=== PATIENT | male | born 2000 | race Caucasian/White ===

== ENCOUNTER 2020-09-20 08:07 | Emergency (ER) | payer MEDICAID, SELFPAY ==
--- NOTE | ~2020-09-20 | CT_ITS ---
EXAMINATION: CT ABDOMEN AND PELVIS WITH CONTRAST CLINICAL INFORMATION: Right lower quadrant abdominal pain. COMPARISON: CT of the abdomen and pelvis done on 11/09/2018. TECHNIQUE: Multidetector volumetric images were obtained from the superior aspect of the liver through the pubic symphysis following administration 85 mL of Omnipaque 350 intravenous contrast. Sagittal and coronal reformatted images were obtained on the technologist's workstation. Oral contrast: No This CT examination was performed using dose optimization techniques as appropriate, variously including the following: *Automated exposure control *Adjustment of mA and/or kV according to patient size (this includes techniques or standardized protocols for targeted exams where dose is matched to indication/reason for exam; i.e. extremities or head) *Use of iterative reconstruction technique DLP: 470 mGy-cm FINDINGS: LUNG BASES: The visualized lung bases are unremarkable. LIVER, GALLBLADDER, AND BILIARY TREE: The liver is normal in size, shape, and attenuation. No focal hepatic lesion or biliary ductal dilatation is present. The gallbladder is unremarkable with no evidence of radiopaque gallstones, gallbladder wall thickening, or obvious pericholecystic inflammatory changes. PANCREAS: Unremarkable. SPLEEN: Unremarkable. ADRENAL GLANDS: Unremarkable. KIDNEYS AND URETERS: The kidneys are normal in size, shape, and attenuation. No hydronephrosis, hydroureter, or calculi seen. No perinephric stranding. BLADDER: Circumferential diffuse thickening is present, may represent changes secondary to superimposed infection, outlet obstruction, suboptimal distention, or combination thereof. GASTROINTESTINAL TRACT: The small and large bowel are unremarkable. The appendix measures 6 mm at its maximum diameter. Appendicoliths are present. The tip of the appendix shows subtle periappendiceal stranding. The findings may represent early subtle changes of appendicitis however, may also represent normal findings. Clinical correlation is recommended. ABDOMINAL WALL: No significant hernia is appreciated. LYMPH NODES: Normal. VASCULAR: Unremarkable. PELVIC VISCERA: Unremarkable. OSSEOUS STRUCTURES: Unremarkable. CT/CT abdomen pelvis w con IMPRESSION: 1. Evidence of appendicolith and a normal caliber appendix. The tip of the appendix shows subtle periappendiceal stranding. The findings may represent normal finding or early subtle changes of appendicitis. Clinical and lab correlation is recommended. 2. Circumferential diffuse thickening of the urine bladder, nonspecific, may represent changes secondary to superimposed infection, altered obstruction, suboptimal distention or combination thereof. This critical result was discussed with Dr. Leung at 10:43 AM on 09/20/2020 and it was ascertained that the content and urgency of the report was understood at the time of direct communication.
[2020-09-20 08:26] VITALS: BP 113/70; PULSE 67; RESP 16; TEMP 36.8; O2SAT 98; BMI 25.1
--- NOTE | 2020-09-20 08:46 | ED.ABDPAIN ---
HPI - Abdominal Pain General Chief Complaint: Abdominal Pain Stated Complaint: Abd pain, blood in urine Time Seen by Provider: 09/20/20 08:36 Source: patient Mode of arrival: ambulatory History of Present Illness HPI narrative: THIS IS A 19 YEARS OLD MALE PRESENTED TO THE EMERGENCY ROOM WITH A CHIEF COMPLAINT OF RIGHT LOWER QUADRANT ABDOMINAL PAIN X4 DAYS MD elicited complaint: abdominal pain Pertinent past history: none Onset (ago): day(s) (4) Pain Consistency: constant Location: RLQ Severity: mild Quality: cramping Radiation: none Migration to: no migration Exacerbating factors: nothing Related Data Previous Rx's Medication Instructions Recorded levofloxacin 500 mg PO Q24H #7 tab 09/20/20 Allergies Allergy/AdvReac Type Severity Reaction Status Date / Time peanut [PEANUT] Allergy Unknown ANAPHYLAXIS Unverified 12/05/19 16:55 Review of Systems Review of Systems Yes all other systems are reviewed and are negative Cardiovascular: Reports no additional cardiovascular complaints Gastrointestinal: Reports no additional gastrointestinal complaints Reports system reviewed and no additional complaints, except as documented Physical Exam Vital Signs: Vital Signs: Last Vital Signs Temp 98.8 F 09/20/20 11:24 Pulse 50 09/20/20 11:24 Resp 18 09/20/20 11:24 BP 116/68 09/20/20 11:24 Pulse Ox 99 09/20/20 11:24 Body Mass Index 25.1 Const: General: cooperative, healthy appearing, comfortable, no acute distress, well developed, alert and awake Orientation/consciousness: oriented to person, oriented to place, oriented to time and patient oriented x3 HENMT: Head: Yes normal to inspection Ears: hearing grossly normal bilaterally General nose exam: Normal external nose present Face and sinus: Yes normal facial exam Eyes: General: appearance normal, both eyes and all related structures Sclerae: sclerae normal Neck: Neck: Yes normal visual inspection, Yes full ROM and Yes no lymphadenopathy Chest: Chest palpation & inspection: normal inspection of the chest and normal palpation of entire chest wall Resp: Auscultation: clear to auscultation bilaterally Cardio: Jugular venous distension: no JVD Palpation: normal PMI Rate: regular rate Rhythm: regular rhythm GI: Palpation (GI): Soft to palpation, not firm and Tenderness to palpation present (GI) in the RLQ Skin: General skin exam: no rashes or lesions noted, elasticity normal and turgor normal Neuro: General: oriented to person, oriented to place, oriented to time, patient oriented x3 and gait normal Course Course Course Narrative: the result of the CT scan of the abdomen and pelvis was reviewed he has an appendicolith but the appendix is normal in size. I consulted the surgeon on-call Dr. Goel he does not think the patient has an acute appendicitis because he is afebrile, no nausea ,he has a normal white count the symptoms have been present for few days also patient has hematuria and dysuria. He recommend to treat the patient with p.o. antibiotic for possible UTI, he will see the patient in the office for follow-up. Dr. Goel explained this to the patient who is very comfortable with the plan. He will be discharged on p.o. antibiotic and abdominal pain instruction MDM - Abdominal Pain Lab Data Result diagrams: 09/20/20 08:56 09/20/20 08:56 Labs: Lab Results 09/20/20 09/20/20 09/20/20 Range/Units 08:56 08:56 09:11 WBC 5.1 (4.8-10.8) X10*3/uL RBC 4.97 (4.60-5.80) X10*6/uL Hgb 15.0 (14.0-18.0) g/dl Hct 43.3 (42-52) % MCV 87.1 (80-98) fL MCH 30.2 (27.0-33.0) pg MCHC 34.6 (31.0-36.0) g/dl RDW 12.6 (11.0-16.0) % Plt Count 165 (160-400) X10*3/uL MPV 10.0 (9.4-12.4) fL Immature Gran % (Auto) 0.2 (0.0-0.4) % Neut % (Auto) 67.9 (45-73) % Lymph % (Auto) 21.0 (20-40) % [place] % (Auto) 7.7 (2-11) % Eos % (Auto) 2.6 (0-4) % Baso % (Auto) 0.6 (0-2) % Lymph # (Auto) 1.1 L (1.2-4.9) X10*3/uL [place] # (Auto) 0.4 (0.1-1.2) X10*3/uL Eos # (Auto) 0.1 (0.0-0.4) X10*3/uL Baso # (Auto) 0.0 (0.0-0.2) X10*3/uL Abs Immat Gran (auto) 0.01 (0.00-0.03) X10*3/uL Absolute Neuts (auto) 3.4 (2.0-8.3) X10*3/uL Absolute Nucleated RBC 0.000 (0.0-0.012) X10*3/uL Nucleated RBC % (auto) 0.0 (0.0-0.2) /100WBC Sodium 139 (135-145) mmol/L Potassium 4.0 (3.3-5.1) mmol/L Chloride 106 (96-108) mmol/L Carbon Dioxide 26 (22-29) mmol/L Anion Gap 11 L (12-20) BUN 9 (9-16) mg/dL Creatinine 0.80 (0.5-1.4) mg/dL Estim Creat Clear Calc 148.5 Estimated GFR > 60 Random Glucose 101 (60-115) mg/dL Calcium 9.4 (8.4-10.2) mg/dL Total Bilirubin 0.8 (0.0-1.0) mg/dL AST 15 (5-37) U/L ALT 8 (0-40) U/L Alkaline Phosphatase 56 (39-117) U/L Total Protein 6.8 (6.5-8.0) g/dL Albumin 4.2 (3.5-5.0) g/dL Lipase 19 (8-78) U/L Urine Color YELLOW Urine Appearance HAZY Urine pH 6.5 (5.0-8.0) Ur Specific [place] 1.020 (1.005-1.025) Urine Protein 1+ H (NEG-TRACE) MG/DL Urine Glucose (UA) NEG (NEG) MG/DL Urine Ketones NEG (NEG) MG/DL Urine Blood 2+ H (NEG) Urine Nitrite NEG (NEG) Ur Leukocyte Esterase 2+ H (NEG) Urine RBC 5-9 H (0) /HPF Urine WBC 15-29 H (0-4) /HPF Ur Squamous Epith Cells NONE /LPF Urine Bacteria NONE /LPF Urine Mucus 1+ /LPF Urine Opiates Screen (Not Detect) Ur Barbiturates Screen (Not Detect) Ur Phencyclidine Scrn (Not Detect) Ur Amphetamines Screen (Not Detect) U Benzodiazepines Scrn (Not Detect) Urine Cocaine Screen (Not Detect) U Marijuana (THC) Screen (Not Detect) 09/20/20 Range/Units 09:11 WBC (4.8-10.8) X10*3/uL RBC (4.60-5.80) X10*6/uL Hgb (14.0-18.0) g/dl Hct (42-52) % MCV (80-98) fL MCH (27.0-33.0) pg MCHC (31.0-36.0) g/dl RDW (11.0-16.0) % Plt Count (160-400) X10*3/uL MPV (9.4-12.4) fL Immature Gran % (Auto) (0.0-0.4) % Neut % (Auto) (45-73) % Lymph % (Auto) (20-40) % [place] % (Auto) (2-11) % Eos % (Auto) (0-4) % Baso % (Auto) (0-2) % Lymph # (Auto) (1.2-4.9) X10*3/uL [place] # (Auto) (0.1-1.2) X10*3/uL Eos # (Auto) (0.0-0.4) X10*3/uL Baso # (Auto) (0.0-0.2) X10*3/uL Abs Immat Gran (auto) (0.00-0.03) X10*3/uL Absolute Neuts (auto) (2.0-8.3) X10*3/uL Absolute Nucleated RBC (0.0-0.012) X10*3/uL Nucleated RBC % (auto) (0.0-0.2) /100WBC Sodium (135-145) mmol/L Potassium (3.3-5.1) mmol/L Chloride (96-108) mmol/L Carbon Dioxide (22-29) mmol/L Anion Gap (12-20) BUN (9-16) mg/dL Creatinine (0.5-1.4) mg/dL Estim Creat Clear Calc Estimated GFR Random Glucose (60-115) mg/dL Calcium (8.4-10.2) mg/dL Total Bilirubin (0.0-1.0) mg/dL AST (5-37) U/L ALT (0-40) U/L Alkaline Phosphatase (39-117) U/L Total Protein (6.5-8.0) g/dL Albumin (3.5-5.0) g/dL Lipase (8-78) U/L Urine Color Urine Appearance Urine pH (5.0-8.0) Ur Specific [place] (1.005-1.025) Urine Protein (NEG-TRACE) MG/DL Urine Glucose (UA) (NEG) MG/DL Urine Ketones (NEG) MG/DL Urine Blood (NEG) Urine Nitrite (NEG) Ur Leukocyte Esterase (NEG) Urine RBC (0) /HPF Urine WBC (0-4) /HPF Ur Squamous Epith Cells /LPF Urine Bacteria /LPF Urine Mucus /LPF Urine Opiates Screen Not Detected (Not Detect) Ur Barbiturates Screen Not Detected (Not Detect) Ur Phencyclidine Scrn Not Detected (Not Detect) Ur Amphetamines Screen Not Detected (Not Detect) U Benzodiazepines Scrn Not Detected (Not Detect) Urine Cocaine Screen Not Detected (Not Detect) U Marijuana (THC) Screen POSITIVE H (Not Detect) Imaging Data CT scan - abdomen: Radiologist's impression: ABDOMINAL WALL: No significant hernia is appreciated. LYMPH NODES: Normal. VASCULAR: Unremarkable. PELVIC VISCERA: Unremarkable. OSSEOUS STRUCTURES: Unremarkable. CT/CT abdomen pelvis w con IMPRESSION: 1. Evidence of appendicolith and a normal caliber appendix. The tip of the appendix shows subtle periappendiceal stranding. The findings may represent normal finding or early subtle changes of appendicitis. Clinical and lab correlation is recommended. 2. Circumferential diffuse thickening of the urine bladder, nonspecific, may represent changes secondary to superimposed infection, altered obstruction, suboptimal distention or combination thereof. This critical result was discussed with Dr. Leung at 10:43 AM on 09/20/2020 and it was ascertained that the content and urgency of the report was understood at the time of direct communication. Discharge Plan Discharge Clinical Impression: Abdominal pain, Acute UTI Patient Disposition: Home, Self-Care Instructions: Urinary Tract Infection in Men (ED), Abdominal Pain (ED) Additional Instructions: follow-up with Dr. Goel as we discussed, take the antibiotic as directed return to the emergency room review of vomiting a few of a fever a few no nausea increasing pain Prescriptions: New levofloxacin 500 mg tablet 500 mg PO Q24H Qty: 7 RF: 0 Referrals: Daljit Goel MD [Physician] - 2 days Interventions: ED Discharge Assessment Last Done: 09/20/20 12:05 Discharge Date/Time: 09/20/20 12:06 PMFSH Past Medical History Medical History No known health problems Suprapubic pain Social History Social History Alcohol intake: never Patient Tobacco Use Status: Never used Tobacco Use of substances other than those prescribed or required for medical reasons: Yes Substance Use Type: Marijuana Substance Use Frequency: Occasionally Advance Directives: Yes Advance Directives Information Provided: No Advance Directives on File: No
[2020-09-20 09:00] LABS: MANUAL DIFF FLAG NO
[2020-09-20 09:03] LABS: Basophils Percent Auto 0.6 % (0-2); Eosinophils Absolute Auto 0.1 X10*3/uL (0.0-0.4); Eosinophils Percent Auto 2.6 % (0-4); Hematocrit 43.3 % (42-52); Imm Gran Abs Auto 0.01 X10*3/uL (0.00-0.03); Imm Gran Pct Auto 0.2 % (0.0-0.4); Lymphocytes Absolute Auto 1.1 X10*3/uL (1.2-4.9); Mean Corpuscular HGB Conc 34.6 g/dl (31.0-36.0); Mean Corpuscular Hemoglobin 30.2 pg (27.0-33.0); Mean Corpuscular Volume 87.1 fL (80-98); Monocytes Absolute Auto 0.4 X10*3/uL (0.1-1.2); Monocytes Percent Auto 7.7 % (2-11); Neutrophils Absolute Auto 3.4 X10*3/uL (2.0-8.3); Neutrophils Percent Auto 67.9 % (45-73); Platelet Count 165 X10*3/uL (160-400); Red Blood Count 4.97 X10*6/uL (4.60-5.80); Red Cell Distribution Width 12.6 % (11.0-16.0); White Blood Count 5.1 X10*3/uL (4.8-10.8)
--- NOTE | 2020-09-20 09:08 | PC.NURSE ---
iv established, blood labs obtained and sent. pt ambulating to and from bathroom w smooth steady gait.
[2020-09-20 09:18] LABS: Glucose Urine UA NEG (NEG); Leukocyte Esterase Urine 2+ (NEG); Nitrite Urine NEG (NEG); PH 6.5 (5.0-8.0); UACC Culture Trigger YES; Urine Blood 2+ (NEG); Urine Ketones NEG (NEG); Urine Protein 1+ MG/DL (NEG-TRACE)
[2020-09-20 09:28] LABS: Albumin Level 4.2 g/dL (3.5-5.0); Alkaline Phosphatase 56 U/L (39-117); Anion Gap 11 (12-20); Aspartate Amino Transferase 15 U/L (5-37); Bilirubin Total 0.8 mg/dL (0.0-1.0); Blood Urea Nitrogen 9 mg/dL (9-16); Calcium 9.4 mg/dL (8.4-10.2); Carbon Dioxide 26 mmol/L (22-29); Chloride 106 mmol/L (96-108); Creatinine Clr Calc Pharmacy 148.5; Estimated Glomerular Filt Rate > 60; Glucose Random 101 mg/dL (60-115); Lipase 19 U/L (8-78); Sodium 139 mmol/L (135-145); Total Protein 6.8 g/dL (6.5-8.0)
[2020-09-20 09:36] LABS: Appearance Urine HAZY; Color Urine YELLOW; UACC CULT YES
[2020-09-20 09:38] LABS: Alanine Aminotransferase 8 U/L (0-40)
[2020-09-20 09:40] LABS: Mucus Urine 1+ /LPF
[2020-09-20 09:41] LABS: Amphetamine Screen Urine Not Detected (Not Detect); Barbiturates, Urine Not Detected (Not Detect); Benzodiazepines Screen Urine Not Detected (Not Detect); Cannabinoid Screen Urine POSITIVE (Not Detect); Cocaine Screen Urine Not Detected (Not Detect); Opiate Screen Urine Not Detected (Not Detect); Phencyclidine Screen Urine Not Detected (Not Detect)
[2020-09-20] MEDS: iohexoL 350 MG/ML 100 ML INFUS..BTL IV (09:54)
[2020-09-20 11:24] VITALS: BP 116/68; PULSE 50; RESP 18; TEMP 37.1; O2SAT 99
--- NOTE | 2020-09-20 11:26 | PM.HPGS ---
History of Present Illness History of Present Illness Date of Service: 09/20/20 Chief complaint: Abd pain, blood in urine Narrative: John Alfaro is a 19 year old male who came to the ED this morning because of what he describes as pain on the pubic area. He says this has been going on for over 1 week now. He describes seeing blood with urination for the oast three days. He says he has severe burning on the pubic area as well with urination. He says he had felt nauseous because of this burning pain. He denies any fever or chills. He denies nausea. He says the pain has not really changed much the past week. He does state that the pain radiates a little more laterally to both the left and the right side near the suprapubic area. Review of Systems Constitutional: Constitutional: Denies chills and Denies fever(s) Cardiovascular: Cardiovascular: Denies chest pain, Denies dyspnea and Denies dyspnea on exertion Respiratory: Respiratory: Denies cough, Denies dyspnea and Denies dyspnea on exertion Gastrointestinal: Gastrointestinal: Denies hematochezia and Denies change in bowel habits Genitourinary: Genitourinary: Reports hematuria, Reports difficulty urinating and Reports dysuria Musculoskeletal: Musculoskeletal: Denies back pain and Denies limited range of motion Neurologic: Denies focal weakness and Denies convulsions Psychiatric: Psychiatric: Denies depression and Denies mood swings PMFSH Past Medical History Medical History (Updated 09/20/20 @ 11:30 by Daljit Goel MD) No known health problems Suprapubic pain Social History Social History Alcohol intake: never Patient Tobacco Use Status: Never used Tobacco Use of substances other than those prescribed or required for medical reasons: Yes Substance Use Type: Marijuana Substance Use Frequency: Occasionally Advance Directives: Yes Advance Directives Information Provided: No Advance Directives on File: No Meds Allergies Allergy/AdvReac Type Severity Reaction Status Date / Time peanut [PEANUT] Allergy Unknown ANAPHYLAXIS Unverified 12/05/19 16:55 Physical Exam Vital Signs: Vital Signs: Last Vital Signs Temp 98.8 F 09/20/20 11:24 Pulse 50 09/20/20 11:24 Resp 18 09/20/20 11:24 BP 116/68 09/20/20 11:24 Pulse Ox 99 09/20/20 11:24 Body Mass Index 25.1 Const: General: comfortable and no acute distress Orientation/consciousness: patient oriented x3 Neck: Neck: Yes no lymphadenopathy Resp: Auscultation: clear to auscultation bilaterally Cardio: Rhythm: regular rhythm GI: Palpation (GI): Soft to palpation, nontender and no guarding Neuro: General: patient oriented x3 Results Results Labs: Short CBC 09/20/20 Range/Units 08:56 WBC 5.1 (4.8-10.8) X10*3/uL Hgb 15.0 (14.0-18.0) g/dl Hct 43.3 (42-52) % Plt Count 165 (160-400) X10*3/uL BMP 09/20/20 08:56 Sodium 139 Potassium 4.0 Chloride 106 Carbon Dioxide 26 BUN 9 Creatinine 0.80 Calcium 9.4 Liver Function 09/20/20 Range/Units 08:56 Total Bilirubin 0.8 (0.0-1.0) mg/dL AST 15 (5-37) U/L ALT 8 (0-40) U/L Alkaline Phosphatase 56 (39-117) U/L Albumin 4.2 (3.5-5.0) g/dL Urine 09/20/20 Range/Units 09:11 Urine Color YELLOW Urine Appearance HAZY Urine pH 6.5 (5.0-8.0) Ur Specific [place] 1.020 (1.005-1.025) Urine Protein 1+ H (NEG-TRACE) MG/DL Urine Glucose (UA) NEG (NEG) MG/DL Laboratory Results WBC 5.1 X10*3/uL (4.8-10.8) 09/20/20 08:56 RBC 4.97 X10*6/uL (4.60-5.80) 09/20/20 08:56 Hgb 15.0 g/dl (14.0-18.0) 09/20/20 08:56 Hct 43.3 % (42-52) 09/20/20 08:56 MCV 87.1 fL (80-98) 09/20/20 08:56 MCH 30.2 pg (27.0-33.0) 09/20/20 08:56 MCHC 34.6 g/dl (31.0-36.0) 09/20/20 08:56 RDW 12.6 % (11.0-16.0) 09/20/20 08:56 Plt Count 165 X10*3/uL (160-400) 09/20/20 08:56 MPV 10.0 fL (9.4-12.4) 09/20/20 08:56 Immature Gran % (Auto) 0.2 % (0.0-0.4) 09/20/20 08:56 Neut % (Auto) 67.9 % (45-73) 09/20/20 08:56 Lymph % (Auto) 21.0 % (20-40) 09/20/20 08:56 [place] % (Auto) 7.7 % (2-11) 09/20/20 08:56 Eos % (Auto) 2.6 % (0-4) 09/20/20 08:56 Baso % (Auto) 0.6 % (0-2) 09/20/20 08:56 Lymph # (Auto) 1.1 X10*3/uL (1.2-4.9) L 09/20/20 08:56 [place] # (Auto) 0.4 X10*3/uL (0.1-1.2) 09/20/20 08:56 Eos # (Auto) 0.1 X10*3/uL (0.0-0.4) 09/20/20 08:56 Baso # (Auto) 0.0 X10*3/uL (0.0-0.2) 09/20/20 08:56 Abs Immat Gran (auto) 0.01 X10*3/uL (0.00-0.03) 09/20/20 08:56 Absolute Neuts (auto) 3.4 X10*3/uL (2.0-8.3) 09/20/20 08:56 Absolute Nucleated RBC 0.000 X10*3/uL (0.0-0.012) 09/20/20 08:56 Nucleated RBC % (auto) 0.0 /100WBC (0.0-0.2) 09/20/20 08:56 Sodium 139 mmol/L (135-145) 09/20/20 08:56 Potassium 4.0 mmol/L (3.3-5.1) 09/20/20 08:56 Chloride 106 mmol/L (96-108) 09/20/20 08:56 Carbon Dioxide 26 mmol/L (22-29) 09/20/20 08:56 Anion Gap 11 (12-20) L 09/20/20 08:56 BUN 9 mg/dL (9-16) 09/20/20 08:56 Creatinine 0.80 mg/dL (0.5-1.4) 09/20/20 08:56 Estim Creat Clear Calc 148.5 09/20/20 08:56 Estimated GFR > 60 09/20/20 08:56 Random Glucose 101 mg/dL (60-115) 09/20/20 08:56 Calcium 9.4 mg/dL (8.4-10.2) 09/20/20 08:56 Total Bilirubin 0.8 mg/dL (0.0-1.0) 09/20/20 08:56 AST 15 U/L (5-37) 09/20/20 08:56 ALT 8 U/L (0-40) 09/20/20 08:56 Alkaline Phosphatase 56 U/L (39-117) 09/20/20 08:56 Total Protein 6.8 g/dL (6.5-8.0) 09/20/20 08:56 Albumin 4.2 g/dL (3.5-5.0) 09/20/20 08:56 Lipase 19 U/L (8-78) 09/20/20 08:56 Urine Color YELLOW 09/20/20 09:11 Urine Appearance HAZY 09/20/20 09:11 Urine pH 6.5 (5.0-8.0) 09/20/20 09:11 Ur Specific [place] 1.020 (1.005-1.025) 09/20/20 09:11 Urine Protein 1+ MG/DL (NEG-TRACE) H 09/20/20 09:11 Urine Glucose (UA) NEG MG/DL (NEG) 09/20/20 09:11 Urine Ketones NEG MG/DL (NEG) 09/20/20 09:11 Urine Blood 2+ (NEG) H 09/20/20 09:11 Urine Nitrite NEG (NEG) 09/20/20 09:11 Ur Leukocyte Esterase 2+ (NEG) H 09/20/20 09:11 Urine RBC 5-9 /HPF (0) H 09/20/20 09:11 Urine WBC 15-29 /HPF (0-4) H 09/20/20 09:11 Ur Squamous Epith Cells NONE /LPF 09/20/20 09:11 Urine Bacteria NONE /LPF 09/20/20 09:11 Urine Mucus 1+ /LPF 09/20/20 09:11 Urine Opiates Screen Not Detected (Not Detect) 09/20/20 09:11 Ur Barbiturates Screen Not Detected (Not Detect) 09/20/20 09:11 Ur Phencyclidine Scrn Not Detected (Not Detect) 09/20/20 09:11 Ur Amphetamines Screen Not Detected (Not Detect) 09/20/20 09:11 U Benzodiazepines Scrn Not Detected (Not Detect) 09/20/20 09:11 Urine Cocaine Screen Not Detected (Not Detect) 09/20/20 09:11 U Marijuana (THC) Screen POSITIVE (Not Detect) H 09/20/20 09:11 Impressions Abdomen/Pelvis CT 09/20/20 08:45 IMPRESSION: 1. Evidence of appendicolith and a normal caliber appendix. The tip of the appendix shows subtle periappendiceal stranding. The findings may represent normal finding or early subtle changes of appendicitis. Clinical and lab correlation is recommended. 2. Circumferential diffuse thickening of the urine bladder, nonspecific, may represent changes secondary to superimposed infection, altered obstruction, suboptimal distention or combination thereof. This critical result was discussed with Dr. Leung at 10:43 AM on 09/20/2020 and it was ascertained that the content and urgency of the report was understood at the time of direct communication. Assessment and Plan (1) Suprapubic pain: Status: Acute His main complaint is severe burning with urination with pain on the suprapubic area mostly. Physical exam shows a mildly tender abdomen mostly on the suprapubic area and less on both the left and right side. He does not have leukocytosis. He has had this pain for over 1 week. Overall clinical picture is not suggestive of acute appendicitis. I have reviewed his CT scan images as well and the findings on the appendix are underwhelming. He does have appendicoliths so I explained to him that this may cause acute appendicitis in the future, but for now, clinical judgment suggests a urinary tract pathology like UTI and cysititis. He has RBCs in the urine as well as large numbers of WBCs and is positive for leukocyte esterase. I have discussed this with the ED staff and I agree with PO abx at this time. I did have a long discussion with the pt and explained to him that if he feels he has not improved with a reasonable duration of abx treatment, he should come back to be reevaluated.
[2020-09-20] MEDS: cefTRIAXone sodium 1 GM in 0.9 % Sodium Chloride 50 ML IV (11:32)
--- NOTE | 2020-09-20 11:47 | PM.CNGS ---
History of Present Illness Consult details Consult date: 09/20/20 Narrative: John Alfaro is a 19 year old male who came to the ED this morning because of what he describes as pain on the pubic area. He says this has been going on for over 1 week now. He describes seeing blood with urination for the oast three days. He says he has severe burning on the pubic area as well with urination. He says he had felt nauseous because of this burning pain. He denies any fever or chills. He denies nausea. He says the pain has not really changed much the past week. He does state that the pain radiates a little more laterally to both the left and the right side near the suprapubic area. Review of Systems Constitutional: Constitutional: Denies chills and Denies fever(s) Cardiovascular: Cardiovascular: Denies chest pain, Denies dyspnea and Denies dyspnea on exertion Respiratory: Respiratory: Denies cough, Denies dyspnea and Denies dyspnea on exertion Gastrointestinal: Gastrointestinal: Denies hematochezia and Denies change in bowel habits Genitourinary: Genitourinary: Reports hematuria, Reports difficulty urinating and Reports dysuria Musculoskeletal: Musculoskeletal: Denies back pain and Denies limited range of motion Neurologic: Denies focal weakness and Denies convulsions Psychiatric: Psychiatric: Denies depression and Denies mood swings PMFSH Past Medical History Medical History No known health problems Suprapubic pain Social History Social History Alcohol intake: never Patient Tobacco Use Status: Never used Tobacco Use of substances other than those prescribed or required for medical reasons: Yes Substance Use Type: Marijuana Substance Use Frequency: Occasionally Advance Directives: Yes Advance Directives Information Provided: No Advance Directives on File: No Meds Allergies Allergy/AdvReac Type Severity Reaction Status Date / Time peanut [PEANUT] Allergy Unknown ANAPHYLAXIS Unverified 12/05/19 16:55 Active Medications: Current Medications Generic Name Dose Route Start Last Admin Trade Name Freq PRN Reason Stop Dose Admin Ceftriaxone Sodium 1 gm/ 50 mls @ 100 mls/hr 09/20/20 11:25 09/20/20 11:32 Sodium Chloride IV 09/20/20 11:54 100 mls/hr ONCE ONE Administration Physical Exam Vital Signs: Vital Signs: Last Vital Signs Temp 98.8 F 09/20/20 11:24 Pulse 50 09/20/20 11:24 Resp 18 09/20/20 11:24 BP 116/68 09/20/20 11:24 Pulse Ox 99 09/20/20 11:24 Body Mass Index 25.1 Const: General: comfortable and no acute distress Orientation/consciousness: patient oriented x3 Neck: Neck: Yes no lymphadenopathy Resp: Auscultation: clear to auscultation bilaterally Cardio: Rhythm: regular rhythm GI: Other: mild tenderness on the suprapubic area, less on both left and right lateral to this, no guarding or rebound, no Rovsing's sign Palpation (GI): Soft to palpation and no guarding Neuro: General: patient oriented x3 Results Labs Result diagrams: 09/20/20 08:56 09/20/20 08:56 Labs: Abnormal lab results 09/20/20 09/20/20 09/20/20 Range/Units 08:56 08:56 09:11 Lymph # (Auto) 1.1 L (1.2-4.9) X10*3/uL Anion Gap 11 L (12-20) Urine Protein 1+ H (NEG-TRACE) MG/DL Urine Blood 2+ H (NEG) Ur Leukocyte Esterase 2+ H (NEG) Urine RBC 5-9 H (0) /HPF Urine WBC 15-29 H (0-4) /HPF U Marijuana (THC) Screen (Not Detect) 09/20/20 Range/Units 09:11 Lymph # (Auto) (1.2-4.9) X10*3/uL Anion Gap (12-20) Urine Protein (NEG-TRACE) MG/DL Urine Blood (NEG) Ur Leukocyte Esterase (NEG) Urine RBC (0) /HPF Urine WBC (0-4) /HPF U Marijuana (THC) Screen POSITIVE H (Not Detect) Short CBC 09/20/20 Range/Units 08:56 WBC 5.1 (4.8-10.8) X10*3/uL Hgb 15.0 (14.0-18.0) g/dl Hct 43.3 (42-52) % Plt Count 165 (160-400) X10*3/uL BMP 09/20/20 08:56 Sodium 139 Potassium 4.0 Chloride 106 Carbon Dioxide 26 BUN 9 Creatinine 0.80 Calcium 9.4 Liver Function 09/20/20 Range/Units 08:56 Total Bilirubin 0.8 (0.0-1.0) mg/dL AST 15 (5-37) U/L ALT 8 (0-40) U/L Alkaline Phosphatase 56 (39-117) U/L Albumin 4.2 (3.5-5.0) g/dL Urine 09/20/20 Range/Units 09:11 Urine Color YELLOW Urine Appearance HAZY Urine pH 6.5 (5.0-8.0) Ur Specific [place] 1.020 (1.005-1.025) Urine Protein 1+ H (NEG-TRACE) MG/DL Urine Glucose (UA) NEG (NEG) MG/DL All other labs normal. Imaging Abdomen CT scan report/results: report reviewed and image reviewed CT scan - pelvis: report reviewed and image reviewed Additional studies: Laboratory Results WBC 5.1 X10*3/uL (4.8-10.8) 09/20/20 08:56 RBC 4.97 X10*6/uL (4.60-5.80) 09/20/20 08:56 Hgb 15.0 g/dl (14.0-18.0) 09/20/20 08:56 Hct 43.3 % (42-52) 09/20/20 08:56 MCV 87.1 fL (80-98) 09/20/20 08:56 MCH 30.2 pg (27.0-33.0) 09/20/20 08:56 MCHC 34.6 g/dl (31.0-36.0) 09/20/20 08:56 RDW 12.6 % (11.0-16.0) 09/20/20 08:56 Plt Count 165 X10*3/uL (160-400) 09/20/20 08:56 MPV 10.0 fL (9.4-12.4) 09/20/20 08:56 Immature Gran % (Auto) 0.2 % (0.0-0.4) 09/20/20 08:56 Neut % (Auto) 67.9 % (45-73) 09/20/20 08:56 Lymph % (Auto) 21.0 % (20-40) 09/20/20 08:56 [place] % (Auto) 7.7 % (2-11) 09/20/20 08:56 Eos % (Auto) 2.6 % (0-4) 09/20/20 08:56 Baso % (Auto) 0.6 % (0-2) 09/20/20 08:56 Lymph # (Auto) 1.1 X10*3/uL (1.2-4.9) L 09/20/20 08:56 [place] # (Auto) 0.4 X10*3/uL (0.1-1.2) 09/20/20 08:56 Eos # (Auto) 0.1 X10*3/uL (0.0-0.4) 09/20/20 08:56 Baso # (Auto) 0.0 X10*3/uL (0.0-0.2) 09/20/20 08:56 Abs Immat Gran (auto) 0.01 X10*3/uL (0.00-0.03) 09/20/20 08:56 Absolute Neuts (auto) 3.4 X10*3/uL (2.0-8.3) 09/20/20 08:56 Absolute Nucleated RBC 0.000 X10*3/uL (0.0-0.012) 09/20/20 08:56 Nucleated RBC % (auto) 0.0 /100WBC (0.0-0.2) 09/20/20 08:56 Sodium 139 mmol/L (135-145) 09/20/20 08:56 Potassium 4.0 mmol/L (3.3-5.1) 09/20/20 08:56 Chloride 106 mmol/L (96-108) 09/20/20 08:56 Carbon Dioxide 26 mmol/L (22-29) 09/20/20 08:56 Anion Gap 11 (12-20) L 09/20/20 08:56 BUN 9 mg/dL (9-16) 09/20/20 08:56 Creatinine 0.80 mg/dL (0.5-1.4) 09/20/20 08:56 Estim Creat Clear Calc 148.5 09/20/20 08:56 Estimated GFR > 60 09/20/20 08:56 Random Glucose 101 mg/dL (60-115) 09/20/20 08:56 Calcium 9.4 mg/dL (8.4-10.2) 09/20/20 08:56 Total Bilirubin 0.8 mg/dL (0.0-1.0) 09/20/20 08:56 AST 15 U/L (5-37) 09/20/20 08:56 ALT 8 U/L (0-40) 09/20/20 08:56 Alkaline Phosphatase 56 U/L (39-117) 09/20/20 08:56 Total Protein 6.8 g/dL (6.5-8.0) 09/20/20 08:56 Albumin 4.2 g/dL (3.5-5.0) 09/20/20 08:56 Lipase 19 U/L (8-78) 09/20/20 08:56 Urine Color YELLOW 09/20/20 09:11 Urine Appearance HAZY 09/20/20 09:11 Urine pH 6.5 (5.0-8.0) 09/20/20 09:11 Ur Specific [place] 1.020 (1.005-1.025) 09/20/20 09:11 Urine Protein 1+ MG/DL (NEG-TRACE) H 09/20/20 09:11 Urine Glucose (UA) NEG MG/DL (NEG) 09/20/20 09:11 Urine Ketones NEG MG/DL (NEG) 09/20/20 09:11 Urine Blood 2+ (NEG) H 09/20/20 09:11 Urine Nitrite NEG (NEG) 09/20/20 09:11 Ur Leukocyte Esterase 2+ (NEG) H 09/20/20 09:11 Urine RBC 5-9 /HPF (0) H 09/20/20 09:11 Urine WBC 15-29 /HPF (0-4) H 09/20/20 09:11 Ur Squamous Epith Cells NONE /LPF 09/20/20 09:11 Urine Bacteria NONE /LPF 09/20/20 09:11 Urine Mucus 1+ /LPF 09/20/20 09:11 Urine Opiates Screen Not Detected (Not Detect) 09/20/20 09:11 Ur Barbiturates Screen Not Detected (Not Detect) 09/20/20 09:11 Ur Phencyclidine Scrn Not Detected (Not Detect) 09/20/20 09:11 Ur Amphetamines Screen Not Detected (Not Detect) 09/20/20 09:11 U Benzodiazepines Scrn Not Detected (Not Detect) 09/20/20 09:11 Urine Cocaine Screen Not Detected (Not Detect) 09/20/20 09:11 U Marijuana (THC) Screen POSITIVE (Not Detect) H 09/20/20 09:11 Impressions Abdomen/Pelvis CT 09/20/20 08:45 IMPRESSION: 1. Evidence of appendicolith and a normal caliber appendix. The tip of the appendix shows subtle periappendiceal stranding. The findings may represent normal finding or early subtle changes of appendicitis. Clinical and lab correlation is recommended. 2. Circumferential diffuse thickening of the urine bladder, nonspecific, may represent changes secondary to superimposed infection, altered obstruction, suboptimal distention or combination thereof. This critical result was discussed with Dr. Leung at 10:43 AM on 09/20/2020 and it was ascertained that the content and urgency of the report was understood at the time of direct communication. Assessment and Plan (1) Suprapubic pain: Status: Acute His main complaint is severe burning with urination with pain on the suprapubic area mostly. Physical exam shows a mildly tender abdomen mostly on the suprapubic area and less on both the left and right side. He does not have leukocytosis. He has had this pain for over 1 week. Overall clinical picture is not suggestive of acute appendicitis. I have reviewed his CT scan images as well and the findings on the appendix are underwhelming. He does have appendicoliths so I explained to him that this may cause acute appendicitis in the future, but for now, clinical judgment suggests a urinary tract pathology like UTI and cysititis. He has RBCs in the urine as well as large numbers of WBCs and is positive for leukocyte esterase. I have discussed this with the ED staff and I agree with PO abx at this time. I did have a long discussion with the pt and explained to him that if he feels he has not improved with a reasonable duration of abx treatment, he should come back to be reevaluated. Procedures Date of Service Date of Service: 09/23/20
== END 2020-09-20 12:06 | disposition home or self-care (01) ==
PROVIDERS: Emergency Provider Emergency Medicine
DX: N39.0 Urinary tract infection, site not specified (principal); R10.31 Right lower quadrant pain
CPT/HCPCS: 36415; 74177; 80053; 80307; 81001; 83690; 85025; 87086; 96365; 99284; J0696; Q9967

== ENCOUNTER 2020-10-10 13:33 | Emergency (ER) | payer MEDICAID, SELFPAY ==
[2020-10-10 13:44] VITALS: BP 116/65; PULSE 77; RESP 18; TEMP 36.1; O2SAT 99; BMI 22.9
[2020-10-10 15:13] LABS: Glucose Urine UA NEG (NEG); Leukocyte Esterase Urine NEG (NEG); Nitrite Urine NEG (NEG); Urine Blood NEG (NEG); Urine Ketones NEG (NEG); Urine Protein TRACE MG/DL (NEG-TRACE)
[2020-10-10 15:15] LABS: Appearance Urine CLEAR; Color Urine YELLOW
--- NOTE | 2020-10-10 15:17 | ED.MALEGU ---
HPI - Male Genitourinary General Chief complaint: Urogenital-Male Stated complaint: STD CHECK Time Seen by Provider: 10/10/20 15:17 History of Present Illness HPI Narrative: Patient believes he may have been exposed to an STD, he is not sure which 1 He has no symptoms he has no dysuria no urinary frequency no discharge no sores no discomfort Related Data Previous Rx's Medication Instructions Recorded levofloxacin 500 mg tablet 500 mg PO Q24H #7 tab 09/20/20 Allergies Allergy/AdvReac Type Severity Reaction Status Date / Time peanut [PEANUT] Allergy Unknown ANAPHYLAXIS Verified 10/14/20 16:15 Review of Systems Review of Systems: No fever no chills no sore throat no difficulty breathing no abdominal pain no testicular pain no discharge no lesions no sores no rashes no burning with urination Yes all other systems are reviewed and are negative [facility] Past Medical History Source: nursing notes reviewed Medical History (Updated 10/14/20 @ 16:26 by Daljit Goel MD) Appendicolith No known health problems Suprapubic pain Social History Social History Alcohol intake: never Patient Tobacco Use Status: Never used Tobacco Substance Use Type: Marijuana Physical Exam Vital Signs: Vital Signs: Last Vital Signs Temp 96.9 F 10/10/20 13:44 Pulse 77 10/10/20 13:44 Resp 18 10/10/20 13:44 BP 116/65 10/10/20 13:44 Pulse Ox 99 10/10/20 13:44 Body Mass Index 22.9 General appearance no distress Head is normocephalic atraumatic The pharynx is clear Neck is supple Respiratory no distress Abdomen soft nontender Genital exam no lesions no sores no discharge no swelling Skin no rashes Course Course Course Narrative: Patient is treated with Rocephin and Zithromax for a possible exposure to STD, and if any testing comes positive he is informed he may need a further prescription for a week of doxycycline He is advised to follow with STD Clinic for further evaluation MDM - Male Genitourinary Lab Data Labs: Lab Results 10/10/20 10/10/20 Range/Units 14:56 14:56 Urine Color YELLOW Urine Appearance CLEAR Urine pH 7.0 (5.0-8.0) Ur Specific [place] 1.010 (1.005-1.025) Urine Protein TRACE (NEG-TRACE) MG/DL Urine Glucose (UA) NEG (NEG) MG/DL Urine Ketones NEG (NEG) MG/DL Urine Blood NEG (NEG) Urine Nitrite NEG (NEG) Ur Leukocyte Esterase NEG (NEG) Chlam trachomat DNA PCR NOT DETECTED (Not Detect.) N.gonorrhoeae DNA (PCR) NOT DETECTED (Not Detect.) Discharge Plan Discharge Clinical Impression: Exposure to STD Patient Disposition: Home, Self-Care Additional Instructions: Because you had an exposure to chlamydia we treated you in the ER with an injection of Rocephin and a Zithromax by mouth We will call you if testing is positive If testing is positive you will need to take an additional prescription of doxycycline Follow with clinic for further evaluation No sex with her partner until everyone is treated and all symptoms are gone Prescriptions: No Action levofloxacin 500 mg tablet 500 mg PO Q24H Qty: 7 RF: 0 Interventions: ED Discharge Assessment Last Done: 10/10/20 15:33 Discharge Date/Time: 10/10/20 15:33
[2020-10-10] MEDS: Azithromycin 500 MG TABLET 1000 MG PO (15:28)
[2020-10-10] MEDS: cefTRIAXone sodium 500 MG, Lidocaine HCl 1 % MPF 1 ML IM (15:29)
[2020-10-10 18:21] LABS: CT PCR NOT DETECTED (Not Detect.); NG PCR NOT DETECTED (Not Detect.)
== END 2020-10-10 15:33 | disposition home or self-care (01) ==
PROVIDERS: Physician Assistant Medical; Emergency Provider Emergency Medicine
DX: Z11.3 Encounter for screening for infections with a predominantly sexual mode of transmission (principal)
CPT/HCPCS: 81003; 87491; 87591; 96374; 99283; 99284; J0696

== ENCOUNTER → 2020-10-14 15:47 | Outpatient (BNVA) | payer MEDICAID, SELFPAY | PROVIDERS: Visit Provider Surgery ==

== ENCOUNTER 2020-11-05 09:15 | Emergency (ER) | payer MEDICAID, SELFPAY ==
[2020-11-05 09:49] VITALS: BP 131/85; PULSE 105; RESP 16; TEMP 36.4; O2SAT 96; BMI 25.9
--- NOTE | 2020-11-05 10:16 | ED.GENADULT ---
HPI - General Adult General Chief complaint: Skin/Abscess/Foreign Body Stated complaint: cyst Time Seen by Provider: 11/05/20 10:16 Source: patient Limitations: no limitations History of Present Illness HPI narrative: Patient presents to the ER complaining of an abscess on his right butt cheek. Patient states symptoms have been worsening over the past 2-3 days. No purulent discharge patient but you would burst on its own. Pain is 6/10 increases with palpation. No changes in bowel movements. No prior history of similar abscesses in the past. Patient denies history of diabetes. Symptoms mild to moderate. No other complaints at this time. Related Data Previous Rx's Medication Instructions Recorded levofloxacin 500 mg tablet 500 mg PO Q24H #7 tab 09/20/20 cephalexin 500 mg capsule 500 mg PO Q8H #30 cap 11/05/20 minocycline 100 mg capsule 100 mg PO BID #20 cap 11/05/20 Allergies Allergy/AdvReac Type Severity Reaction Status Date / Time peanut [PEANUT] Allergy Unknown ANAPHYLAXIS Verified 10/14/20 16:15 Review of Systems Review of Systems: Constitutional : No Weight loss, No Fever, No Chills, No Night Sweats Cardiovascular : No Chest Pain, No SOB, No Dyspnea Respiratory : No Cough, No Sputum, No Wheezing, No Smoke Exposure, No Dyspnea Gastrointestinal : No Nausea, No Vomiting, No Diarrhea Genitourinary : no irregular bleeding, No Dysuria Musculoskeletal : No joint pain, No Myalgias, No Joint SwellingSkin : No Skin Lesions, No rash Neuro : No Weakness, No Numbness, No Paresthesias, No Loss of Consciousness, No Dizziness, No Headache Psych : No Anxiety/Panic, No Depression, No SI/HI/AH/VH, No Social Issues, Heme/Lymph: Abscess pain right rectal fold Endocrine : No Polyuria, No Polydipsia, No Temperature Intolerance PMFSH Past Medical History Attestation statement: The following information was validated with the patient. Medical History Appendicolith Asthma No known health problems Suprapubic pain Social History Social History Alcohol intake: never Patient Tobacco Use Status: Never used Tobacco Substance Use Type: Marijuana Advance Directives: Yes Advance Directives Information Provided: Yes Advance Directives on File: No Physical Exam Vital Signs: Vital Signs: Last Vital Signs Temp 97.6 F 11/05/20 09:49 Pulse 105 H 11/05/20 09:49 Resp 16 11/05/20 09:49 BP 131/85 11/05/20 09:49 Pulse Ox 96 11/05/20 09:49 Body Mass Index 25.9 vital signs have been reviewed as normal and appeared to be correct. Blood pressure normal. Heart rate normal. Respiration rate normal. Temperature normal. Oxygen saturation normal. Appearance: Alert. Oriented X3. No acute distress. Head: Normal external exam. Normocephalic. Eyes: PERRLA. EOMI. ENT: Pharynx normal. Uvula midline. Moist mucous membranes. Neck: Soft full range of motion, no JVD CVS: Heart regular rate and rhythm no murmurs and rubs Respiratory: Breath sounds are clear to auscultation bilaterally. No accessory muscle use noted. Abdomen: Soft nontender no rebound or guarding positive bowel sounds Back: Full range of motion noted. Skin: Right buttock full area of induration fluctuant mass positive tenderness not extending to the rectum minimal to no discharge at this time Extremities: No lower extremity edema. Extremities exhibit normal range of motion. Extremities nontender. Neuro: Oriented X 3. No motor deficit. No sensory deficit. Reflexes normal. Course Course Course Narrative: Right rectal fold abscess Incision drainage Pilonidal abscess Procedure note Patient has a large abscess in the right rectal fold Cleaned with Betadine and saline Anesthetized with 1% lidocaine 18 gauge needle aspirate performed with 10 cc of purulent discharge obtained Eleven blade insertion copious purulent discharge obtained wound probed and irrigated Packing placed tolerated well Discharge Plan Discharge Clinical Impression: Abscess of skin or subcutaneous tissue, Status post incision and drainage Patient Disposition: Home, Self-Care Instructions: Abscess (ED), Abscess Incision and Drainage (DC) Additional Instructions: Return for packing removal in 36-48 hours it may fall out on its own Antibiotics as directed Prescriptions: New minocycline 100 mg capsule 100 mg PO BID Qty: 20 RF: 0 cephalexin 500 mg capsule 500 mg PO Q8H Qty: 30 RF: 0 No Action levofloxacin 500 mg tablet 500 mg PO Q24H Qty: 7 RF: 0
[2020-11-05] MEDS: Lidocaine HCl 1 % 20 ML VIAL 5 ML INFILTRATI (10:38)
== END 2020-11-05 11:31 | disposition home or self-care (01) ==
PROVIDERS: Emergency Provider Internal Medicine
DX: L05.01 Pilonidal cyst with abscess (principal)
CPT/HCPCS: 10080; 99283; 99284

== ENCOUNTER 2021-01-06 11:47 | Emergency (ER) | payer MEDICAID, SELFPAY | END 2021-01-06 12:36 | disposition left against medical advice (07) | PROVIDERS: Emergency Provider Emergency Medicine | DX: L02.91 Cutaneous abscess, unspecified (principal) ==

== ENCOUNTER 2021-02-26 09:41 | Outpatient (REF) | payer MEDICAID, SELFPAY ==
[2021-02-26 10:07] LABS: COVID-19 Test Negative (Negative)
== END 2021-02-26 09:42 | disposition home or self-care (01) ==
LOC: HO.LAB 09:41
PROVIDERS: Visit Provider Internal Medicine
DX: Z20.822 Contact with and (suspected) exposure to COVID-19 (principal)
CPT/HCPCS: 36415; 87635; C9803

== ENCOUNTER 2021-04-29 10:15 | Outpatient (REF) | payer MEDICAID, SELFPAY ==
[2021-04-29 10:42] LABS: COVID-19 Test Negative (Negative)
== END 2021-04-29 10:16 | disposition home or self-care (01) ==
LOC: HO.LAB 10:15
PROVIDERS: Visit Provider Internal Medicine
DX: Z20.822 Contact with and (suspected) exposure to COVID-19 (principal)
CPT/HCPCS: 87635; C9803

== ENCOUNTER 2022-11-12 22:46 | Emergency (ER) | payer MEDICAID, SELFPAY ==
[2022-11-12 22:48] VITALS: BP 124/65; PULSE 77; RESP 18; TEMP 37.2; O2SAT 97; BMI 30.6
--- NOTE | 2022-11-13 00:27 | ED_ITS ---
HPI - Male Genitourinary General Chief complaint: Urogenital-Male Stated complaint: gen med Time Seen by Provider: 11/13/22 00:22 Source: patient Mode of arrival: ambulatory Limitations: no limitations History of Present Illness HPI Narrative: Patient comes to the emergency room requesting to be tested for sexually transmitted diseases, patient states that get on the outside approximately 2 months ago. His partner just informed him that she tested positive for chlamydia. Patient is asymptomatic, patient denies any penile discharge, patient denies dysuria. Related Data Previous Rx's Medication Instructions Recorded levofloxacin 500 mg tablet 500 mg PO Q24H uti #7 tabs 09/20/20 cephalexin 500 mg capsule 500 mg PO Q8H #30 caps 11/05/20 minocycline 100 mg capsule 100 mg PO BID #20 caps 11/05/20 Allergies Allergy/AdvReac Type Severity Reaction Status Date / Time peanut [PEANUT] Allergy Unknown ANAPHYLAXIS Verified 10/14/20 16:15 Review of Systems Review of Systems: Constitutional : No Weight loss, No Fever, No Chills, No Night Sweats, No Fatigue, No Malaise ENT/Mouth : No Hearing loss, No Ear Pain, No Nasal Congestion, No Sinus Pain, No Hoarseness, No sore throat, No Rhinorrhea, No Swallowing Difficulty Eyes: No Eye Pain, No Swelling, No Redness, No Foreign Body, No Discharge, No Vision Changes Cardiovascular : No Chest Pain, No SOB, No Dyspnea on Exertion, No Orthopnea, No Edema, No Palpitations Respiratory : No Cough, No Sputum, No Wheezing, No Smoke Exposure, No Dyspnea Gastrointestinal : No Nausea, No Vomiting, No Diarrhea, No Constipation, No abdominal Pain, No Hematochezia, No Melena Genitourinary : no irregular bleeding, No Dysuria, No Urinary Frequency, No Hematuria, No Urinary Incontinence, No Urgency, No Flank Pain, No Urinary Flow Changes, No Hesitancy Musculoskeletal : No joint pain, No Myalgias, No Joint Swelling Skin : No Skin Lesions, No rash Neuro : No Weakness, No Numbness, No Paresthesias, No Loss of Consciousness, No Dizziness, No Headache Psych : No Anxiety/Panic, No Depression, No SI/HI/AH/VH, No Social Issues, Heme/Lymph: No Bruising, No Bleeding,No Lymphadenopathy Endocrine : No Polyuria, No Polydipsia, No Temperature Intolerance [facility] Past Medical History Medical History Appendicolith Asthma No known health problems Suprapubic pain Social History Social History Alcohol intake: current Alcohol intake frequency: holidays/special occasions only Patient Tobacco Use Status: Never used Tobacco Substance Use Type: Marijuana Physical Exam Vital Signs: Vital Signs: Last Vital Signs Temp 98.9 F 11/12/22 22:48 Pulse 77 11/12/22 22:48 Resp 18 11/12/22 22:48 BP 124/65 11/12/22 22:48 Pulse Ox 97 11/12/22 22:48 O2 Del Method Room Air 11/12/22 22:48 BMI result Body Mass Index 30.6 Const: Other: Appearance: Alert. Oriented X3. No acute distress. Eyes: Pupils equal, round and reactive to light. ENT: Pharynx normal. Neck: Normal inspection. Neck supple. No lymph nodes noted. No crepitus CVS: Normal heart rate and rhythm. Pulses normal. Normal S1 and S2 Respiratory: No respiratory distress. Breath sounds normal. No Wheezing. No rales Abdomen: Soft and nontender. No rigidity. No distention. Skin: Skin warm and dry. Normal skin color. Normal skin turgor. Extremities: No lower extremity edema. No Lacerations. No Rash Neuro: Oriented X 3. No motor deficit. No sensory deficit. Moving all extremities. No slurred speech. CN 2 through 12 grossly intact Psych: calm, cooperative, normal affect Medical Decision Making Medical Decision Making MDM Narrative: -patient is asymptomatic, it has been over 2 months since his last exposure to STDs. Unlikely to have an STD. -patient's urinalysis and CT/NG pending. Discussed with the patient that if positive he will receive a phone call at home and antibiotics will be sent to his pharmacy. Differential Diagnosis Differential Diagnoses: The differential diagnosis associated with the presentation includes (UTI, STD, cystitis) Discharge Plan Discharge Clinical Impression: Exposure to STD Patient Disposition: Home, Self-Care Instructions: Sexually Transmitted Diseases (ED), Safe Sex Practices (ED) Additional Instructions: Please follow-up with your primary care physician tomorrow. If you have any worsening or new symptoms, please return to the emergency room or call 911 Prescriptions: No Action levofloxacin 500 mg tablet 500 mg PO Q24H Qty: 7 0RF minocycline 100 mg capsule 100 mg PO BID Qty: 20 0RF cephalexin 500 mg capsule 500 mg PO Q8H Qty: 30 0RF
[2022-11-13 00:43] LABS: Appearance Urine Clear; Color Urine Yellow; Glucose Urine UA Negative (Negative); Leukocyte Esterase Urine Negative (Negative); Nitrite Urine Negative (Negative); PH 5.5 (5.0-9.0); Urine Blood Negative (Negative); Urine Ketones Negative (Negative); Urine Protein Negative (Neg-Trace)
[2022-11-13 02:21] LABS: CT PCR NOT DETECTED (Not Detect.); NG PCR NOT DETECTED (Not Detect.)
== END 2022-11-13 00:38 | disposition home or self-care (01) ==
PROVIDERS: Emergency Provider Emergency Medicine
DX: Z20.2 Contact with and (suspected) exposure to infections with a predominantly sexual mode of transmission (principal)
CPT/HCPCS: 0353U; 81003; 99283; 99284